=== PATIENT | male | born 1955 | race Caucasian/White ===

== ENCOUNTER 2016-12-03 08:45 | Day surgery (SDC) | payer MEDICAID ==
[~2016-12-03] VITALS: Ht 170.2 cm; Wt 95.3 kg
[2016-12-03] MEDS ORDERED: METO25TA6 PO (09:10)
[2016-12-03] MEDS ORDERED: GLIP10TA10 PO (09:10)
[2016-12-03] MEDS ORDERED: METF10002 PO (09:10)
[2016-12-03] MEDS ORDERED: ASPI-1159 PO (09:10)
[2016-12-03] MEDS ORDERED: SITA1TAB6 PO (09:17)
[2016-12-03] MEDS ORDERED: SODIUM CHLORIDE 0.9% 1,000 ML IV SCH (10:05)
[2016-12-03] MEDS ORDERED: ONDANSETRON HCL 4MG/2ML VIAL IV PRN (11:45)
[2016-12-03] MEDS ORDERED: MEPERIDINE HCL/PF 25MG/ML CPJ IV PRN (11:45)
[2016-12-03] MEDS ORDERED: HYDROMORPHONE HCL/PF 2MG/ML CPJ IV PRN (11:45)
[2016-12-03] MEDS ORDERED: LABETALOL HCL 20MG/4ML CARPUJECT IV PRN (11:45)
== END 2016-12-03 13:35 | disposition home or self-care (01) ==
LOC: OR 08:45
PROVIDERS: ATTEND Internal Medicine Gastroenterology
DX: I85.00 Esophageal varices without bleeding (principal); K74.60 Unspecified cirrhosis of liver; E11.9 Type 2 diabetes mellitus without complications; I10 Essential (primary) hypertension; K64.8 Other hemorrhoids; K44.9 Diaphragmatic hernia without obstruction or gangrene
CPT/HCPCS: 43244; 82962; J7030

== ENCOUNTER 2016-12-31 08:59 | Day surgery (SDC) | payer MEDICAID ==
[~2016-12-31] VITALS: Ht 170.2 cm; Wt 95.3 kg
[~2016-12-31 08:59] MED LIST: SITA1TAB6 PO
[2016-12-31 09:24] LABS: BASOPHILS % 0.9 % (0.0-2.0); EOSINOPHILS % 4.6 % (0.0-5.0); HEMATOCRIT. 47.6 % (42.0-52.0); HEMOGLOBIN. 16.4 g/dL (14.0-18.0); LYMPHOCYTES % 33.1 % (20.0-50.0); MEAN CORPUSCULAR HEMOGLOBIN 30.2 pg (28.0-32.0); MEAN CORPUSCULAR VOLUME 87.5 fL (80.0-94.0); MEAN PLATELET VOLUME 7.8 fl (7.4-10.4); MONOCYTES % 9.3 % (2.0-8.0); NEUTROPHILS % 52.1 % (40.0-76.0); PLATELET 127 x1000/uL (130-400); RED BLOOD CELL COUNT 5.44 mill/uL (4.7-6.1); RED CELL DISTRIBUTION WIDTH 13.7 % (11.6-14.6)
[2016-12-31 09:31] LABS: CHLORIDE 102 mEq/L (98-107)
[2016-12-31 09:40] LABS: CARBON DIOXIDE 30 mEq/L (21-32)
[2016-12-31] MEDS ORDERED: SODIUM CHLORIDE 0.9% 1,000 ML IV SCH (10:15)
[2016-12-31] MEDS ORDERED: PROPOFOL 200MG/20ML VIAL IV ONE (11:20)
[2016-12-31] MEDS ORDERED: GLIP-191 PO (11:43)
[2016-12-31] MEDS ORDERED: ASPI-1159 PO (11:43)
[2016-12-31] MEDS ORDERED: METO25TA6 PO (11:43)
[2016-12-31] MEDS ORDERED: ONDANSETRON HCL 4MG/2ML VIAL IV PRN (11:45)
== END 2016-12-31 12:30 | disposition home or self-care (01) ==
LOC: OR 08:59
PROVIDERS: ATTEND Internal Medicine Gastroenterology
DX: I85.00 Esophageal varices without bleeding (principal); K76.6 Portal hypertension; K31.9 Disease of stomach and duodenum, unspecified; K44.9 Diaphragmatic hernia without obstruction or gangrene; I44.0 Atrioventricular block, first degree; I10 Essential (primary) hypertension; E11.9 Type 2 diabetes mellitus without complications; Z79.899 Other long term (current) drug therapy; Z79.82 Long term (current) use of aspirin; Z79.84 Long term (current) use of oral hypoglycemic drugs
CPT/HCPCS: 36415; 43244; 80048; 85025; 93005; J7030; J2704

== ENCOUNTER 2017-10-28 08:03 | Day surgery (SDC) | payer MEDICAID ==
[~2017-10-28] VITALS: Ht 170.2 cm; Wt 97.1 kg
[~2017-10-28 08:03] MED LIST changes: +GLIP-191 PO; +METO25TA6 PO
[2017-10-28 08:52] LABS: BASOPHILS % 0.7 % (0.0-2.0); EOSINOPHILS % 4.6 % (0.0-5.0); LYMPHOCYTES % 33.7 % (20.0-50.0); MEAN CORPUSCULAR HEMOGLOBIN 29.9 pg (28.0-32.0); MEAN CORPUSCULAR VOLUME 87.5 fL (80.0-94.0); MEAN PLATELET VOLUME 8.3 fl (7.4-10.4); MONOCYTES % 9.4 % (2.0-8.0); NEUTROPHILS % 51.6 % (40.0-76.0); PLATELET 107 x1000/uL (130-400); RED BLOOD CELL COUNT 5.02 mill/uL (4.7-6.1); RED CELL DISTRIBUTION WIDTH 13.7 % (11.6-14.6)
[2017-10-28 09:00] LABS: INR 1.1; PARTIAL THROMBOPLASTIN TIME 27.8 sec (23.4-31.0); PROTHROMBIN TIME 11.5 sec (9.1-11.1)
[2017-10-28 09:13] LABS: CHLORIDE 101 mEq/L (98-107)
[2017-10-28] MEDS ORDERED: SODIUM CHLORIDE 0.9% 1,000 ML IV SCH (09:20)
[2017-10-28] MEDS ORDERED: SIMETHICONE 40 MG/0.6 ML 30ML ONE (10:22)
[2017-10-28] MEDS ORDERED: PROPOFOL 200MG/20ML VIAL IV ONE (10:29)
[2017-10-28] MEDS ORDERED: LIDOCAINE HCL/PF 1% 10 MG/ML 5ML VIAL ONE (10:29)
[2017-10-28] MEDS ORDERED: MIDAZOLAM HCL 5 MG/5 ML VIAL ONE (10:29)
[2017-10-28] MEDS ORDERED: SUCCINYLCHOLINE CHLORIDE 200MG/10ML VIAL IV ONE (10:29)
[2017-10-28] MEDS ORDERED: ASPI-1159 PO (10:53)
[2017-10-28] MEDS ORDERED: OMEP20TA2 PO (10:53)
[2017-10-28] MEDS ORDERED: SODIUM CHLORIDE 0.9% 1,000 ML IV ONE (13:28)
[2017-10-28] MEDS ORDERED: ONDANSETRON HCL 4MG/2ML INJ IV PRN (13:30)
== END 2017-10-28 12:40 | disposition home or self-care (01) ==
LOC: OR 08:03
PROVIDERS: ATTEND Internal Medicine Gastroenterology
DX: I85.10 Secondary esophageal varices without bleeding (principal); K74.60 Unspecified cirrhosis of liver; K44.9 Diaphragmatic hernia without obstruction or gangrene; K29.00 Acute gastritis without bleeding; K76.6 Portal hypertension; K31.89 Other diseases of stomach and duodenum; G47.33 Obstructive sleep apnea (adult) (pediatric); E11.9 Type 2 diabetes mellitus without complications; I10 Essential (primary) hypertension; E66.3 Overweight; Z68.33 Body mass index [BMI] 33.0-33.9, adult; Z79.84 Long term (current) use of oral hypoglycemic drugs; Z79.899 Other long term (current) drug therapy; F10.21 Alcohol dependence, in remission
CPT/HCPCS: 36415; 43244; 80048; 85025; 85610; 85730; 93005; J0330; J2250; J3490; J7030; J2704

== ENCOUNTER 2018-02-03 09:58 | Day surgery (SDC) | payer MEDICARE, MEDICAID ==
[~2018-02-03] VITALS: Ht 170.2 cm; Wt 95.3 kg
[~2018-02-03 09:58] MED LIST changes: +ASPI-1159 PO; +OMEP20TA2 PO
[2018-02-03] MEDS ORDERED: SODIUM CHLORIDE 0.9% 1,000 ML IV SCH (10:35)
[2018-02-03 10:59] LABS: BASOPHILS % 0.9 % (0.0-2.0); HEMATOCRIT. 45.8 % (42.0-52.0); HEMOGLOBIN. 15.8 g/dL (14.0-18.0); LYMPHOCYTES % 27.9 % (20.0-50.0); MEAN CORPUSCULAR HEMOGLOBIN 30.4 pg (28.0-32.0); MEAN CORPUSCULAR VOLUME 88.1 fL (80.0-94.0); MEAN PLATELET VOLUME 8.7 fl (7.4-10.4); MONOCYTES % 7.1 % (2.0-8.0); NEUTROPHILS % 60.1 % (40.0-76.0); PLATELET 131 x1000/uL (130-400); RED CELL DISTRIBUTION WIDTH 13.7 % (11.6-14.6)
[2018-02-03 11:10] LABS: CHLORIDE 98 mEq/L (98-107)
[2018-02-03] MEDS ORDERED: MIDAZOLAM HCL 5 MG/5 ML VIAL ONE (11:38)
[2018-02-03] MEDS ORDERED: PROPOFOL 200MG/20ML VIAL IV ONE (11:38)
[2018-02-03] MEDS ORDERED: SIMETHICONE 40 MG/0.6 ML 30ML ONE (11:39)
[2018-02-03] MEDS ORDERED: LIDOCAINE HCL/PF 1% 10 MG/ML 5ML VIAL ONE (11:39)
[2018-02-03] MEDS ORDERED: SODIUM CHLORIDE 0.9% 1,000 ML IV ONE (12:01)
[2018-02-03] MEDS ORDERED: FLUMAZENIL 0.1 MG/ML 5ML VIAL IV PRN (12:15)
[2018-02-03] MEDS ORDERED: HYDROMORPHONE HCL/PF 2MG/ML CPJ IV PRN (12:15)
[2018-02-03] MEDS ORDERED: ONDANSETRON HCL 4MG/2ML INJ IV PRN (12:15)
== END 2018-02-03 14:00 | disposition home or self-care (01) ==
LOC: OR 09:58
PROVIDERS: ATTEND Internal Medicine Gastroenterology
DX: I85.10 Secondary esophageal varices without bleeding (principal); K76.6 Portal hypertension; K31.89 Other diseases of stomach and duodenum; K44.9 Diaphragmatic hernia without obstruction or gangrene; E11.9 Type 2 diabetes mellitus without complications; E66.3 Overweight; G47.33 Obstructive sleep apnea (adult) (pediatric); Z68.33 Body mass index [BMI] 33.0-33.9, adult; Z79.899 Other long term (current) drug therapy; Z79.82 Long term (current) use of aspirin; Z79.84 Long term (current) use of oral hypoglycemic drugs; I10 Essential (primary) hypertension
CPT/HCPCS: 36415; 43244; 80048; 82962; 85025; 93005; J2250; J3490; J2704

== ENCOUNTER 2018-06-23 08:10 | Day surgery (SDC) | payer MEDICARE, OTHER ==
[~2018-06-23] VITALS: Ht 170.2 cm; Wt 92.5 kg
[~2018-06-23 08:10] MED LIST changes: -METO25TA6 PO; +PROP10TA10 PO
[2018-06-23] MEDS ORDERED: LIDOCAINE HCL/PF 1% 10 MG/ML 5ML VIAL ONE (09:41)
[2018-06-23] MEDS ORDERED: PROPOFOL 200MG/20ML VIAL IV ONE ×2 (09:41→09:43)
[2018-06-23] MEDS ORDERED: SUCCINYLCHOLINE CHLORIDE 200MG/10ML IV ONE (10:00)
[2018-06-23] MEDS ORDERED: MIDAZOLAM HCL 5 MG/5 ML VIAL ONE (10:00)
[2018-06-23] MEDS ORDERED: SIMETHICONE 40 MG/0.6 ML 30ML ONE (10:04)
[2018-06-23] MEDS ORDERED: FLUMAZENIL 0.1 MG/ML 5ML VIAL IV ONE (10:32)
[2018-06-23] MEDS ORDERED: SODIUM CHLORIDE 0.9% 1,000 ML IV ONE (10:35)
[2018-06-23] MEDS ORDERED: IBUPROFEN 600MG TABLET PO NR (10:45)
[2018-06-23] MEDS ORDERED: HYDROMORPHONE HCL/PF 2MG/ML CPJ IV PRN (10:45)
[2018-06-23] MEDS ORDERED: ONDANSETRON HCL 4MG/2ML INJ IV PRN (10:45)
== END 2018-06-23 13:00 | disposition home or self-care (01) ==
LOC: OR 08:10
PROVIDERS: ATTEND Internal Medicine Gastroenterology
DX: K74.69 Other cirrhosis of liver (principal); I85.10 Secondary esophageal varices without bleeding; K76.6 Portal hypertension; K31.89 Other diseases of stomach and duodenum; B18.2 Chronic viral hepatitis C; E11.9 Type 2 diabetes mellitus without complications; I10 Essential (primary) hypertension; K44.9 Diaphragmatic hernia without obstruction or gangrene
CPT/HCPCS: 43244; 82962; J0330; J2250; J2704; J3490

== ENCOUNTER → 2018-06-27 | Outpatient (CLI) | payer MEDICARE, MEDICAID | END | disposition home or self-care (01) | LOC: US 07:40 | PROVIDERS: ATTEND Internal Medicine Gastroenterology | DX: R16.0 Hepatomegaly, not elsewhere classified (principal); R16.1 Splenomegaly, not elsewhere classified | CPT/HCPCS: 76700 ==